=== PATIENT | male | born 1965 | race Caucasian/White ===

== ENCOUNTER 2023-07-25 23:16 | Inpatient (IN) | payer BC ==
[2023-07-26 01:06] VITALS: BMI 36.9
[2023-07-26] MEDS ORDERED: Ondansetron PF 4 MG/2 ML Vial IVP PRN (01:23)
[2023-07-26] MEDS: Acetaminophen 325 MG TAB PO PRN (01:40)
[2023-07-26] MEDS ORDERED: hydrALAZINE 20 MG/ML VIAL SLOW IVP PRN (02:19)
[2023-07-26 02:29] LABS: #Basophils 0.05 10x3/uL (0.0-0.2); %Basophils 0.4 % (0.0-1.0); %Eosinophils 2.4 % (0.0-10.0); %Lymphocytes 8.2 % (21.0-51.0); %Neutrophils 80.1 % (42.0-75.0); Hematocrit 39.9 % (42.0-52.0); Hemoglobin 13.2 g/dL (14.0-18.0); Mean Corpuscular HGB CONC 33.1 g/dL (32.0-36.0); Mean Corpuscular Hemoglobin 29.5 pg (27.0-31.0); Mean Corpuscular Volume 89.3 fL (78.0-98.0); Mean Platelet Volume 10.1 fL (7.4-10.4); Platelet Count 230 10x3/uL (130-400); RBC Distribution Width 13.2 % (11.5-14.5); Red Blood Cell (RBC) Count 4.47 mill/uL (4.70-6.10)
[2023-07-26 03:03] LABS: INR-International Normal Ratio 1.7; PTT 46.5 sec (22.9-36.1); Prothrombin Time 20.2 sec (12.0-14.7)
[2023-07-26 03:38] LABS: Anion Gap 16 mmol/L (10-20); BUN (Urea Nitrogen) 15 mg/dL (8.4-25.7); Calc. Creatinine Clearance 123 mL/min (70-130); Calcium 9.2 mg/dL (7.8-10.44); Carbon Dioxide 24 mmol/L (22-29); Chloride 105 mmol/L (98-107); Estimated GFR 75; Glucose 116 mg/dL (70-105); Sodium 141 mmol/L (136-145)
[2023-07-26] MEDS ORDERED: Heparin 10,000 UNITS/ 10 ML VIAL SLOW IVP SCH (05:30)
[2023-07-26] MEDS: Heparin 25,000 units/D5W 500 ML IVPB SCH (05:38)
[2023-07-26 05:46] LABS: Hematocrit 40.2 % (42.0-52.0); Hemoglobin 13.6 g/dL (14.0-18.0); Platelet Count 276 10x3/uL (130-400)
[2023-07-26] MEDS: LevoFLOXacin 750 mg/D5W 750 MG in Premix 1 BAG IVPB SCH (06:30)
[2023-07-26] MEDS: Lisinopril 20 MG TAB PO SCH (08:52)
[2023-07-26 19:22] LABS: INR-International Normal Ratio 1.3; Prothrombin Time 16.4 sec (12.0-14.7)
[2023-07-26 19:23] LABS: PTT 39.4 sec (22.9-36.1)
[2023-07-26 19:43] LABS: D-Dimer Test Greater than 20.00 mcg/mL (0.27-0.43)
[2023-07-26] MEDS: Heparin 10,000 UNITS/ 10 ML VIAL SLOW IVP SCH (20:11)
[2023-07-27 02:02] LABS: PTT 168.8 sec (22.9-36.1)
[2023-07-27 05:44] LABS: #Basophils 0.07 10x3/uL (0.0-0.2); %Basophils 0.7 % (0.0-1.0); %Eosinophils 4.6 % (0.0-10.0); %Lymphocytes 20.5 % (21.0-51.0); %Neutrophils 64.5 % (42.0-75.0); Hemoglobin 12.9 g/dL (14.0-18.0); Mean Corpuscular HGB CONC 33.1 g/dL (32.0-36.0); Mean Corpuscular Hemoglobin 28.5 pg (27.0-31.0); Mean Corpuscular Volume 86.3 fL (78.0-98.0); Mean Platelet Volume 9.8 fL (7.4-10.4); Platelet Count 244 10x3/uL (130-400); RBC Distribution Width 13.6 % (11.5-14.5); Red Blood Cell (RBC) Count 4.52 mill/uL (4.70-6.10)
[2023-07-27 06:07] LABS: Anion Gap 14 mmol/L (10-20); BUN (Urea Nitrogen) 17 mg/dL (8.4-25.7); Calc. Creatinine Clearance 138 mL/min (70-130); Calcium 9.1 mg/dL (7.8-10.44); Carbon Dioxide 24 mmol/L (22-29); Chloride 103 mmol/L (98-107); Estimated GFR 87; Glucose 84 mg/dL (70-105); Potassium 4.1 mmol/L (3.5-5.1); Sodium 137 mmol/L (136-145)
[2023-07-27] MEDS: Apixaban 5 MG TAB PO SCH ×2 (10:39→20:55)
[2023-07-27 11:16] LABS: Troponin I Less than 0.010 ng/mL (< 0.028)
[2023-07-28 06:04] LABS: #Basophils 0.05 10x3/uL (0.0-0.2); %Basophils 0.5 % (0.0-1.0); %Eosinophils 4.8 % (0.0-10.0); %Lymphocytes 18.6 % (21.0-51.0); %Monocytes 6.2 % (0.0-10.0); %Neutrophils 67.6 % (42.0-75.0); Hematocrit 39.3 % (42.0-52.0); Hematocrit 39.4 % (42.0-52.0); Hemoglobin 13.2 g/dL (14.0-18.0); Hemoglobin 13.3 g/dL (14.0-18.0); Mean Corpuscular HGB CONC 33.8 g/dL (32.0-36.0); Mean Corpuscular Hemoglobin 29.8 pg (27.0-31.0); Mean Corpuscular Volume 88.1 fL (78.0-98.0); Mean Platelet Volume 9.3 fL (7.4-10.4); Platelet Count 254 10x3/uL (130-400); Platelet Count 256 10x3/uL (130-400); RBC Distribution Width 13.4 % (11.5-14.5); Red Blood Cell (RBC) Count 4.47 mill/uL (4.70-6.10)
[2023-07-28 06:16] LABS: Anion Gap 13 mmol/L (10-20); BUN (Urea Nitrogen) 17 mg/dL (8.4-25.7); Calc. Creatinine Clearance 123 mL/min (70-130); Calcium 9.5 mg/dL (7.8-10.44); Carbon Dioxide 24 mmol/L (22-29); Chloride 103 mmol/L (98-107); Estimated GFR 77; Glucose 84 mg/dL (70-105); Potassium 4.1 mmol/L (3.5-5.1); Sodium 136 mmol/L (136-145)
[2023-07-28 13:17] VITALS: TEMP 98.7
[2023-07-28 14:58] VITALS: BP 165/88
[2023-07-28] MEDS: Amlodipine 5 MG TAB PO SCH (15:23)
[2023-07-29] MEDS ORDERED: LevoFLOXacin 750 MG TAB PO SCH (06:00)
[2023-07-29] MEDS ORDERED: Amlodipine 5 MG TAB PO SCH (09:00)
== END 2023-07-28 16:21 | disposition home or self-care (01) | DRG 299 ==
LOC: CCU 07-26 00:25 → T4-B 07-27 12:41
PROVIDERS: ADMIT Internal Medicine; ATTEND Internal Medicine
PROC: 3E0L317 Introduction of Other Thrombolytic into Pleural Cavity, Percutaneous Approach (ICD-10-PCS; principal; 2023-07-26)
DX: I82.432 Acute embolism and thrombosis of left popliteal vein (principal); I26.93 Single subsegmental thrombotic pulmonary embolism without acute cor pulmonale; I10 Essential (primary) hypertension; I82.412 Acute embolism and thrombosis of left femoral vein; I27.21 Secondary pulmonary arterial hypertension; I95.9 Hypotension, unspecified; Z79.899 Other long term (current) drug therapy
CPT/HCPCS: 36415; 80048; 83090; 83880; 84484; 85014; 85018; 85025; 85049; 85300; 85303; 85305; 85307; 85598; 85610; 85730; 86147; J1644; J1956